=== PATIENT | male | born 1970 | race Two or more races ===

== ENCOUNTER 2021-03-17 20:19 | Emergency (ER) | payer OTHER ==
[~2021-03-17] VITALS: Ht 162.6 cm; Wt 93.0 kg
[~2021-03-17 20:19] MED LIST: COZAAR100 MG
[2021-03-17] MEDS ORDERED: RESTORIL30 M1 PO (20:40)
[2021-03-17] MEDS ORDERED: ZOLOFT50 MG PO (20:40)
[2021-03-17] MEDS ORDERED: TOPROL XL25 M1 PO (20:41)
[2021-03-17] MEDS ORDERED: PEPCID AC20 MG PO (20:41)
[2021-03-17] MEDS ORDERED: KETO10TA2 PO (22:24)
[2021-03-17] MEDS ORDERED: ORPHENADRINE C100 MG PO (22:24)
== END 2021-03-17 22:33 | disposition home or self-care (01) ==
LOC: ER 20:19
DX: R07.81 Pleurodynia (principal); W18.30XA Fall on same level, unspecified, initial encounter; Y93.9 Activity, unspecified; Y92.9 Unspecified place or not applicable; Y99.9 Unspecified external cause status